=== PATIENT | female | born 1995 | race Caucasian/White ===

== ENCOUNTER → 2021-05-23 | Outpatient (CLI) | payer BC, OTHER ==
[~2021-05-23] VITALS: Ht 160 cm; Wt 74.4 kg
== END ==
LOC: EROP 15:18
DX: U07.1 COVID-19 (principal); Z23 Encounter for immunization; E11.9 Type 2 diabetes mellitus without complications; J45.909 Unspecified asthma, uncomplicated; K50.90 Crohn's disease, unspecified, without complications; K90.0 Celiac disease
CPT/HCPCS: M0247; Q0247